=== PATIENT | female | born 1965 | race Caucasian/White ===

== ENCOUNTER 2018-06-18 17:03 | Emergency (ER) | payer OTHER ==
[2018-06-18 17:18] VITALS: BP 134/61; PULSE 90; TEMP 98; BMI 28.8
--- NOTE | 2018-06-18 17:19 | PDOC ---
Attending Attestation - Resident Resident Name: Vladimir Anderson - ED Attending Attestation I have performed the following: I have examined & evaluated the patient, The case was reviewed & discussed with the resident, I agree w/resident's findings & plan, Exceptions are as noted
[2018-06-18] MEDS ORDERED: PHENAZOPYRIDINE HCL 100 MG TABLET (FP) PO ONE (17:33)
--- NOTE | 2018-06-18 17:33 | PDOC ---
History of Present Illness - General Chief Complaint: Pain Stated Complaint: BLADDER SPASM AND PAIN AFTER VOIDING Time Seen by Provider: 06/18/18 17:18 - History of Present Illness Initial Comments: 06/18/18 18:25 Chief complaint: Crampy suprapubic pain with urinating History of present illness: Patient complains of crampy suprapubic pain when she urinates for several days. She is status post UTI treated with Cipro. She finished her antibiotic therapy 4 days ago and her dysuria has resolved. She has no dysuria frequency urgency hesitancy or hematuria . Review of systems: No fever/chills, back pain, nausea, vomiting, diarrhea, vaginal bleeding or discharge. Remainder systems reviewed negative Past medical, social, and family history as noted in old record Physical exam: Alert and oriented no acute distress cheerful and cooperative Afebrile, vital signs normal Abdomen nondistended. Bowel sounds normal. Soft without mass or organomegaly. There is mild tenderness over the bladder, with mild distention mid way to the umbilicus. No guarding or rebound. Urinalysis is clear. Culture is pending Impression: Bladder spasm post UTI. No sign of active infection Plan: Pyridium and urology referral. Past History - Past Medical History Allergies/Adverse Reactions: Allergies Allergy/AdvReac Type Severity Reaction Status Date / Time iodine Allergy Severe Difficulty Verified 06/18/18 17:12 Breathing shellfish derived Allergy Severe Difficulty Verified 06/18/18 17:12 Breathing Home Medications: Ambulatory Orders Divalproex [Depakote -] 500 mg PO BID 06/18/18 Gabapentin [Neurontin] 300 mg PO QID 06/18/18 Phenazopyridine HCl [Pyridium] 1 - 2 tab PO TID PRN #15 tablet 06/18/18 Quetiapine Fumarate [Seroquel] 150 mg PO HS 06/18/18 Asthma: Yes COPD: No Psychiatric Problems: Yes (ANXIETY) Other medical history: URINARY TRACT INFECTIONS - Immunization History Td Vaccination: Yes Immunization Up to Date: Yes - Suicide/Smoking/Psychosocial Hx Smoking Status: No Smoking History: Never smoked Years of Tobacco Use: 0 Have you smoked in the past 12 months: No Number of Cigarettes Smoked Daily: 0 If you are a former smoker, when did you quit?: 2000 Cigars Per Day: 0 Information on smoking cessation initiated: No Hx Alcohol Use: No Drug/Substance Use Hx: No Substance Use Type: None Abd/GI Specific PMHX - Complaint Specific PMHX GERD: Yes *Physical Exam - Vital Signs Last Vital Signs Temp Pulse Resp BP Pulse Ox 98 F 90 16 134/61 98 06/18/18 17:05 06/18/18 17:05 06/18/18 17:05 06/18/18 17:05 06/18/18 17:05 Moderate Sedation - Procedure Monitoring Vital Signs: Procedure Monitoring Vital Signs Temperature 98 F 06/18/18 17:05 Pulse Rate 90 06/18/18 17:05 Respiratory Rate 16 06/18/18 17:05 Blood Pressure 134/61 06/18/18 17:05 O2 Sat by Pulse Oximetry (%) 98 06/18/18 17:05 Medical Decision Making - Medical Decision Making 06/18/18 18:07 Urinalysis is clear. Culture pending Relief with Pyridium. Suspect bladder spasm post UTI. Discharged in no pain or other distress to follow-up with urologist and envelope machine operator as directed. *DC/Admit/Observation/Transfer Diagnosis at time of Disposition: Painful bladder spasm - Discharge Dispostion Disposition: HOME Condition at time of disposition: Stable Decision to Admit order: No - Prescriptions Prescriptions: Phenazopyridine HCl [Pyridium] 1 - 2 tab PO TID PRN #15 tablet PRN Reason: bladder spasm - Referrals - Patient Instructions Printed Discharge Instructions: DI for Overactive Bladder Additional Instructions: See your envelope machine operator and urologist as directed as soon as possible for further evaluation and treatment. - Post Discharge Activity
[2018-06-18] MEDS ORDERED: PHENAZOPYRIDINE HCL 100 MG TABLET (FP) ONE (17:42)
[2018-06-18 17:52] LABS: PH,URINE 6.5 (4.5-8); URINE APPEARANCE Clear; URINE BILIRUBIN Negative (NEGATIVE); URINE COLOR Yellow; URINE GLUCOSE (UA) Negative (NEGATIVE); URINE KETONE Trace (NEGATIVE); URINE LEUK ESTERASE Negative (NEGATIVE); URINE NITRITE Negative (NEGATIVE); URINE PROTEIN Negative (NEGATIVE); URINE UROBILINOGEN 0.2 (0.2-1.0)
== END 2018-06-18 18:36 | disposition home or self-care (01) ==
LOC: FER 17:03
DX: N32.89 Other specified disorders of bladder (principal); F41.9 Anxiety disorder, unspecified; J45.909 Unspecified asthma, uncomplicated; Z87.891 Personal history of nicotine dependence
CPT/HCPCS: 81003; 87086; 99283-25

== ENCOUNTER 2018-07-09 15:36 | Emergency (ER) | payer OTHER ==
--- NOTE | 2018-07-09 15:45 | PDOC ---
Rapid Medical Evaluation Time Seen by Provider: 07/09/18 15:42 Medical Evaluation: Allergies Allergy/AdvReac Type Severity Reaction Status Date / Time iodine Allergy Severe Difficulty Verified 06/18/18 17:12 Breathing shellfish derived Allergy Severe Difficulty Verified 06/18/18 17:12 Breathing 07/09/18 15:42 I have performed a brief in-person evaluation of this patient. The patient presents with a chief complaint of: Hx of known uterine fibroid which she believed burst today sudden onset of pain which started this morning at 10 am Pertinent physical exam findings:NAD I have ordered the following: CBC and Chemistry Transvaginal US Discharge Disposition - Diagnosis Pelvic pain - Referrals - Patient Instructions - Post Discharge Activity
[2018-07-09 15:47] VITALS: BP 146/96; PULSE 84; TEMP 97.9; BMI 26.6
--- NOTE | 2018-07-09 16:32 | PDOC ---
History of Present Illness - General Chief Complaint: Pain, Acute Stated Complaint: PAIN Time Seen by Provider: 07/09/18 15:42 History Source: Patient - History of Present Illness Timing/Duration: reports: intermittent Past History - Past Medical History Allergies/Adverse Reactions: Allergies Allergy/AdvReac Type Severity Reaction Status Date / Time iodine Allergy Severe Difficulty Verified 07/09/18 15:44 Breathing shellfish derived Allergy Severe Difficulty Verified 07/09/18 15:44 Breathing Home Medications: Ambulatory Orders Divalproex [Depakote -] 500 mg PO BID 06/18/18 Gabapentin [Neurontin] 300 mg PO QID 06/18/18 Phenazopyridine HCl [Pyridium] 1 - 2 tab PO TID PRN #15 tablet 06/18/18 Quetiapine Fumarate [Seroquel] 150 mg PO HS 06/18/18 Ibuprofen [Motrin -] 800 mg PO QID #28 tablet 07/09/18 Asthma: Yes COPD: No Psychiatric Problems: Yes (ANXIETY) - Immunization History Td Vaccination: Yes Immunization Up to Date: Yes - Suicide/Smoking/Psychosocial Hx Smoking Status: No Smoking History: Never smoked Years of Tobacco Use: 0 Have you smoked in the past 12 months: No Number of Cigarettes Smoked Daily: 0 If you are a former smoker, when did you quit?: 9 Cigars Per Day: 0 Hx Alcohol Use: No Drug/Substance Use Hx: No Substance Use Type: None Abd/GI Specific PMHX - Complaint Specific PMHX GERD: Yes Review of Systems - Review of Systems Constitutional: No: Chills, Fever, Unexplained wgt Loss ABD/GI: No: Constipated, Diarrhea, Nausea, Vomiting : No: Burning, Dysuria, Discharge, Flank Pain, Hematuria *Physical Exam - Vital Signs Last Vital Signs Temp Pulse Resp BP Pulse Ox 97.9 F 84 18 146/96 98 07/09/18 15:44 07/09/18 15:44 07/09/18 15:44 07/09/18 15:44 07/09/18 15:44 - Physical Exam Comments: 07/09/18 16:32 appears mildly anxious General Appearance: Yes: Appropriately Dressed HEENT: positive: Normal Voice Neck: positive: Supple Respiratory/Chest: negative: Respiratory Distress Gastrointestinal/Abdominal: positive: Normal Bowel Sounds, Soft. negative: Tender, Distended, Guarding, Rebound Musculoskeletal: negative: CVA Tenderness Integumentary: positive: Dry, Warm Neurologic: positive: Fully Oriented, Alert, Normal Mood/Affect Moderate Sedation - Procedure Monitoring Vital Signs: Procedure Monitoring Vital Signs Temperature 97.9 F 07/09/18 15:44 Pulse Rate 84 07/09/18 15:44 Respiratory Rate 18 07/09/18 15:44 Blood Pressure 146/96 07/09/18 15:44 O2 Sat by Pulse Oximetry (%) 98 07/09/18 15:44 ED Treatment Course - RADIOLOGY Radiology Studies Ordered: Category Date Time Status PELVIC / BLADDER US [US] Stat Ultrasound 07/09/18 16:21 Ordered Medical Decision Making - Medical Decision Making 07/09/18 16:22 52 yo F, s/p essure (non-surgical sterilization), fibroid uterus, gets monthly menses, here w/ ongoing pelvic pain that pt admits is chronic and has f/u US scheduled in am w/ Dr An, but here requesting US today because she is now concern that pain may be due to ?migration of her essure "because of horror stories I hear" per pt. No vag bleeding, dysuria, n/v/f/c See exam Fibroids w/ chronic pelvic pain Exam unremarkable Unlikely need US in the ER but requesting same to evaluate position of her essure devices Exam unremarkable -UA/US 07/09/18 18:44 07/09/18 18:55 Signed out to JARON Hager pending US report *DC/Admit/Observation/Transfer Diagnosis at time of Disposition: Chronic pelvic pain in female, Fibroids - Discharge Dispostion Disposition: HOME Condition at time of disposition: Good - Prescriptions Prescriptions: Ibuprofen [Motrin -] 800 mg PO QID #28 tablet - Referrals Referrals: Leeroy Capps MD [Primary Care Provider] - - Patient Instructions Printed Discharge Instructions: Uterine Fibroids Additional Instructions: Please follow up with your AVIATION SUPPORT EQUIPMENT REPAIRER tomorrow as already scheduled - Post Discharge Activity
[2018-07-09 17:41] LABS: URINE APPEARANCE CLOUDY; URINE BILIRUBIN NEGATIVE (<2.0 mg/dL); URINE COLOR YELLOW; URINE GLUCOSE (UA) NEGATIVE (NEGATIVE); URINE KETONE TRACE (NEGATIVE); URINE LEUK ESTERASE NEGATIVE (NEGATIVE); URINE NITRITE NEGATIVE (NEGATIVE); URINE PROTEIN NEGATIVE (NEGATIVE); URINE UROBILINOGEN 0.2 mg/dL (0.2-1.0)
[2018-07-09 17:44] LABS: HCG,QUALITATIVE URINE Negative
--- NOTE | 2018-07-09 19:24 | PDOC ---
*Physical Exam - Vital Signs Last Vital Signs Temp Pulse Resp BP Pulse Ox 97.9 F 84 18 146/96 98 07/09/18 15:44 07/09/18 15:44 07/09/18 15:44 07/09/18 15:44 07/09/18 15:44 ED Treatment Course - ADDITIONAL ORDERS Additional order review: Laboratory Results 07/09/18 17:00 Urine Color Yellow Urine Appearance Cloudy Urine pH 5.0 Ur Specific [place] 1.019 Urine Protein Negative Urine Glucose (UA) Negative Urine Ketones Trace H Urine Blood Negative Urine Nitrite Negative Urine Bilirubin Negative Urine Urobilinogen 0.2 Ur Leukocyte Esterase Negative Urine HCG, Qual Negative Progress Note - Progress Note Progress Note: Received sign out from SVEN Romero. Patient is a 52-year-old woman here for evaluation of a Essure device. Patient has appointment with Dr. Ivy tomorrow for reevaluation was concerned that she has continued pain. Patient has been ultrasound at this time. Medical Decision Making - Medical Decision Making 07/09/18 19:30 Ultrasound as read by Dr. Lange: As visualized on recent perform CT through 04/07, multiple uterine leiomyomas are noted most prominent measuring approximately 7 cm in diameter which is positioned along the right lateral aspect of the uterine body. No gross interval change since ultrasound exam performed 2013. Neither ovary can be definitely visualized due to distortion from the previously described leiomyomas. Better over to be definitively visualized on this exam. Bilateral fallopian tube occlusion device is identified on recent perform CT are difficult to appreciate on sonography. 07/09/18 19:34 I discussed the physical exam findings, ancillary test results and final diagnoses with the patient. I answered all of the patient's questions. The patient was satisfied with the care received and felt comfortable with the discharge plan and treatment plan. The patient will call their primary care physician within 24 hours to arrange follow-up and will return to the Emergency Department with any new, persistent or worsening symptoms. *DC/Admit/Observation/Transfer Diagnosis at time of Disposition: Chronic pelvic pain in female, Fibroids - Discharge Dispostion Condition at time of disposition: Good - Prescriptions Prescriptions: Ibuprofen [Motrin -] 800 mg PO QID #28 tablet - Referrals Referrals: Lereoy Capps MD [Primary Care Provider] - - Patient Instructions Printed Discharge Instructions: Uterine Fibroids Additional Instructions: Please follow up with your COLORER MACHINE tomorrow as already scheduled - Post Discharge Activity
== END 2018-07-09 19:36 | disposition home or self-care (01) ==
LOC: JER 15:36
DX: R10.2 Pelvic and perineal pain (principal); F41.9 Anxiety disorder, unspecified; J45.909 Unspecified asthma, uncomplicated
CPT/HCPCS: 76856-TC; 81003; 84703; 99281-25

== ENCOUNTER 2020-03-13 19:30 | Inpatient (IN) | payer OTHER ==
[2020-03-13] MEDS ORDERED: ROCURONIUM BROMIDE 100 MG/10 ML VIAL ONE (19:49)
[2020-03-13] MEDS ORDERED: RAPID SEQUENCE INTUBATION KIT NR ONE (19:57)
[2020-03-13] MEDS ORDERED: EPINEPHrine 1:10,000 (P-F SYR) 1 MG/10 ML DISP.SYRIN ONE (19:57)
[2020-03-13] MEDS ORDERED: SODIUM CHLORIDE 2,994 ML IV ONE (20:06)
[2020-03-13 20:23] LABS: HEMOGLOBIN 9.5 GM/dL (10.7-15.3); WHITE BLOOD COUNT 13.1 K/mm3 (4.0-10.0)
[2020-03-13 20:24] LABS: ARTERIAL BLD GAS O2 SATURATION 43.1 mmHg (95-98); ARTERIAL BLOOD GAS BASE EXCESS -24.2 mmol/L (-2-2)
[2020-03-13 20:27] LABS: ARTERIAL BLOOD GAS pH 6.878 (7.350-7.450)
[2020-03-13 20:31] LABS: INR 1.09 (0.83-1.09); PROTHROMBIN TIME (PATIENT) 13.2 SEC (9.7-13.0)
[2020-03-13 20:34] LABS: ACTIVATED PTT 33.1 SECONDS (25.2-36.5)
[2020-03-13] MEDS ORDERED: VANCOMYCIN HCL 1,500 MG in DEXTROSE 5%-WATER - 500 ML IVPB ONE (20:38)
[2020-03-13] MEDS ORDERED: AZITHROMYCIN IVPB 500 MG in DEXTROSE 5%-WATER - 250 ML IVPB ONE (20:39)
[2020-03-13] MEDS ORDERED: CEFEPIME HCL/D5W 2 GM/50 ML BAG IVPB ONE (20:39)
[2020-03-13 20:41] LABS: CHLORIDE 100 mmol/L (98-107); POTASSIUM 3.9 mmol/L (3.5-5.1); SODIUM 135 mmol/L (136-145)
[2020-03-13] MEDS ORDERED: PIPERACILLIN/TAZOB 3.375 GM 3.375 GM in DEXTROSE 5%-WATER - 50 ML IVPB ONE (20:41)
[2020-03-13] MEDS ORDERED: VANCOMYCIN HCL 2,000 MG in DEXTROSE 5%-WATER - 500 ML IVPB ONE (20:41)
[2020-03-13 20:43] LABS: CALCIUM 7.8 mg/dL (8.5-10.1)
[2020-03-13 20:44] LABS: ALBUMIN 2.6 g/dl (3.4-5.0); ANION GAP 24 MMOL/L (8-16); CO2 12 mmol/L (21-32); MAGNESIUM 3.2 mg/dL (1.8-2.4)
[2020-03-13 20:47] LABS: CREATININE 2.8 mg/dL (0.55-1.3); SGOT/AST 121 U/L (15-37); SGPT/ALT 48 U/L (13-61)
[2020-03-13 20:48] LABS: BILIRUBIN,TOTAL 0.2 mg/dL (0.2-1); TOT PROT 6.4 g/dl (6.4-8.2)
[2020-03-13 20:49] LABS: ALK PHOS 63 U/L (45-117)
[2020-03-13] MEDS ORDERED: AZITHROMYCIN IVPB 500 MG/250 ML BAG IVPB ONE (20:49)
[2020-03-13] MEDS ORDERED: PIPERACILLIN/TAZOB 3.375 GM 3.375 GM/50 ML BAG IVPB ONE (20:49)
[2020-03-13] MEDS ORDERED: PIPERACILLIN/TAZOB 4.5 GM 4.5 GM in DEXTROSE 5%-WATER 100 ML IVPB ONE (20:49)
[2020-03-13 20:52] LABS: N-TERMINAL BNP 2299.7 pg/ml (5-125)
[2020-03-13] MEDS ORDERED: PIPERACILLIN/TAZOB 4.5 GM 4.5 GM/100 ML BAG IVPB ONE (20:55)
[2020-03-13 20:56] LABS: BASO % 1.6 % (0-2.0); HEMATOCRIT 33.2 % (32.4-45.2); MCH 22.2 pg (25.7-33.7); MCHC 28.5 g/dl (32.0-36.0); MEAN CELL VOLUME 77.6 fl (80-96); MEAN PLT VOLUME 9.5 fl (7.5-11.1); MONO % 5.9 % (3.8-10.2); NEUT % 72.5 % (42.8-82.8); PLATELET COUNT 155 K/MM3 (134-434); RBC 4.28 M/mm3 (3.60-5.2); RDW 21.4 % (11.6-15.6)
[2020-03-13 21:01] LABS: GLUCOSE,RANDOM 477 mg/dL (74-106)
[2020-03-13] MEDS ORDERED: INSULIN REGULAR HUMAN 100 UNITS/ML *VIAL* (FOR IVP) IVPUSH ONE (21:10)
[2020-03-13 21:15] LABS: ARTERIAL BLD GAS O2 SATURATION 98.2 mmHg (95-98); ARTERIAL BLOOD GAS BASE EXCESS -20.8 mmol/L (-2-2)
[2020-03-13] MEDS ORDERED: INSULIN REGULAR 100 UNITS in SODIUM CHLORIDE 99 ML IVPB SCH (21:15)
[2020-03-13 21:18] LABS: VENT MODE VOL AC; VENT RATE 16
[2020-03-13] MEDS: LACTATED RINGERS SOLUTION 1,000 ML/1,000 ML INFUS.BAG IV SCH (21:55)
[2020-03-13 21:58] LABS: ANISOCYTOSIS 3+; MACROCYTOSIS 1+; OVALOCYTE 1+; PLATELET ESTIMATE NORMAL
[2020-03-13] MEDS ORDERED: VANCOMYCIN 1 GRAM (PRE-DOCKED) 2,000 MG/500 ML BAG IVPB ONE (21:58)
[2020-03-13 22:12] LABS: EPI CELLS >36 /uL (0-25.1); HYALINE CASTS 24 /uL (0-3.1); URINE APPEARANCE CLOUDY; URINE BACTERIA 63 /uL (0-1359); URINE BILIRUBIN NEGATIVE (NEGATIVE); URINE COLOR YELLOW; URINE GLUCOSE (UA) 3+ (NEGATIVE); URINE KETONE NEGATIVE (NEGATIVE); URINE LEUK ESTERASE NEGATIVE (NEGATIVE); URINE NITRITE NEGATIVE (NEGATIVE); URINE PROTEIN 2+ (NEGATIVE); URINE RBC 12 /uL (0-23.9); URINE UROBILINOGEN 0.2 mg/dL (0.2-1.0)
[2020-03-13 22:33] LABS: PHOSPHOROUS 8.5 mg/dL (2.5-4.9)
[2020-03-13] MEDS ORDERED: INSULIN REGULAR HUMAN 100 UNITS/ML *VIAL ONE (22:34)
[2020-03-13] MEDS ORDERED: PROPOFOL 200 MG/20 ML VIAL IVPUSH ONE (22:50)
[2020-03-13 22:52] LABS: URINE WBC 153.2 /uL (0-25.8)
[2020-03-13] MEDS ORDERED: TRIPLE LUMEN FLUSH 4 ML ML IVPUSH PRN (23:28)
[2020-03-13] MEDS ORDERED: IBUPROFEN 600 MG TABLET (FP) PO ONE (23:37)
[2020-03-14] MEDS: DEXMEDETOMIDINE HCL IVPB SCH ×2 (00:05→21:46)
[2020-03-14] MEDS: SODIUM CHLORIDE IVPB SCH ×2 (00:05→21:46)
[2020-03-14] MEDS ORDERED: PROPOFOL 1,000,000 MCG/100 ML VIAL ONE (00:07)
[2020-03-14 00:14] LABS: ARTERIAL BLD GAS O2 SATURATION 92.5 mmHg (95-98); ARTERIAL BLOOD GAS BASE EXCESS -12.8 mmol/L (-2-2); ARTERIAL BLOOD GAS PO2 75.8 mmHg (80-100); ARTERIAL BLOOD GAS pH 7.211 (7.350-7.450)
[2020-03-14] MEDS ORDERED: PROPOFOL 1,000,000 MCG/100 ML VIAL IVPB SCH (00:15)
[2020-03-14 00:17] LABS: ALLENS TEST POSITIVE
[2020-03-14 00:18] LABS: VENT MODE A/C; VENT RATE 16
[2020-03-14 00:30] LABS: URINE BARBITURATES NEGATIVE ng/ml (CUTOFF=200); URINE BENZODIAZEPINES NEGATIVE ng/ml (CUTOFF=200)
[2020-03-14 00:31] LABS: METHADONE, UR NEGATIVE ng/ml (CUTOFF=300); OPIATES, URI NEGATIVE ng/ml (CUTOFF=300); PHENCYCLIDINE,URINE NEGATIVE ng/ml (CUTOFF=25)
[2020-03-14 00:33] LABS: COCAINE, UR NEGATIVE ng/ml (CUTOFF=300); URINE AMPHETAMINES NEGATIVE ng/ml (CUTOFF=500)
[2020-03-14 00:43] LABS: POTASSIUM 4.2 mmol/L (3.5-5.1)
[2020-03-14 00:44] LABS: CALCIUM 7.6 mg/dL (8.5-10.1)
[2020-03-14 00:45] LABS: BLOOD UREA NITROGEN 33.6 mg/dL (7-18)
[2020-03-14 00:48] LABS: CREATININE 2.5 mg/dL (0.55-1.3)
[2020-03-14] MEDS ORDERED: PANTOPRAZOLE SODIUM 40 MG VIAL IVPUSH ONE (01:33)
[2020-03-14] MEDS: NOREPINEPHRINE BITARTRATE 8,000 MCG/500 ML BAG IVPB SCH (02:23)
[2020-03-14] MEDS ORDERED: FENTANYL NS IVPB 500 MCG/100 ML BAG IVPB SCH (03:00)
[2020-03-14] MEDS ORDERED: DEXTROSE 50%-WATER - 25 GM/50 ML VIAL IVPUSH PRN (03:17)
[2020-03-14] MEDS ORDERED: INSULIN REGULAR 100 UNITS in SODIUM CHLORIDE 99 ML IVPB SCH (03:30)
[2020-03-14] MEDS: FENTANYL NS IVPB 500 MCG/100 ML BAG IVPB SCH (04:00)
[2020-03-14] MEDS: LACTATED RINGERS SOLUTION 1,000 ML/1,000 ML INFUS.BAG IV SCH ×2 (04:21→21:42)
[2020-03-14 05:14] LABS: POTASSIUM 4.3 mmol/L (3.5-5.1)
[2020-03-14 05:15] LABS: BLOOD UREA NITROGEN 38.6 mg/dL (7-18); CALCIUM 7.7 mg/dL (8.5-10.1)
[2020-03-14 05:19] LABS: CREATININE 2.3 mg/dL (0.55-1.3)
[2020-03-14 06:46] LABS: BASO % 0.2 % (0-2.0); HEMATOCRIT 29.4 % (32.4-45.2); HEMOGLOBIN 8.9 GM/dL (10.7-15.3); LYMPH % 12.2 % (8-40); MCH 21.6 pg (25.7-33.7); MCHC 30.4 g/dl (32.0-36.0); MEAN CELL VOLUME 70.9 fl (80-96); MEAN PLT VOLUME 8.7 fl (7.5-11.1); MONO % 7.4 % (3.8-10.2); NEUT % 80.2 % (42.8-82.8); PLATELET COUNT 163 K/MM3 (134-434); RBC 4.15 M/mm3 (3.60-5.2); RDW 20.2 % (11.6-15.6); WHITE BLOOD COUNT 12.4 K/mm3 (4.0-10.0)
[2020-03-14 07:06] LABS: MAGNESIUM 2.6 mg/dL (1.8-2.4)
[2020-03-14 07:09] LABS: PHOSPHOROUS 2.4 mg/dL (2.5-4.9)
[2020-03-14] MEDS ORDERED: PIPERACILLIN/TAZOB 3.375 GM 3.375 GM in DEXTROSE 5%-WATER - 50 ML IVPB ONE (08:45)
[2020-03-14 08:55] LABS: ANISOCYTOSIS 2+; MACROCYTOSIS 0; PLATELET ESTIMATE DECREASED
[2020-03-14] MEDS ORDERED: PIPERACILLIN/TAZOB 3.375 GM 3.375 GM in DEXTROSE 5%-WATER - 50 ML IVPB SCH (09:00)
[2020-03-14] MEDS ORDERED: PIPERACILLIN/TAZOBACTAM 3.375 GM VIAL IVPB ONE (09:59)
[2020-03-14] MEDS ORDERED: DEXTROSE 5%-WATER - 50 ML IVPB ONE ×3 (10:00→21:18)
[2020-03-14] MEDS: MUPIROCIN 2% TOPICAL OINTMENT FOR DECOLONIZATION NS SCH ×2 (10:01→21:45)
[2020-03-14] MEDS: PROPOFOL 1,000,000 MCG/100 ML VIAL IVPUSH SCH ×2 (10:45→19:30)
[2020-03-14 11:47] LABS: ALLENS TEST POSITIVE; ARTERIAL BLD GAS O2 SATURATION 76.6 mmHg (95-98); ARTERIAL BLOOD GAS BASE EXCESS -4.1 mmol/L (-2-2); ARTERIAL BLOOD GAS PO2 42.3 mmHg (80-100); ARTERIAL BLOOD GAS pH 7.364 (7.350-7.450)
[2020-03-14 11:48] LABS: VENT MODE AC; VENT RATE 16
[2020-03-14] MEDS ORDERED: ACETAMINOPHEN 1000 MG/100 ML VIAL (NON FORMULARY) IVPB ONE (12:14)
[2020-03-14] MEDS: HEPARIN NA (PORCINE) 5,000 UNITS/ML 1ML VIAL SQ SCH ×2 (14:37→21:45)
[2020-03-14] MEDS ORDERED: PIPERACILLIN/TAZOBACTAM 2.25 GM VIAL IVPB ONE ×2 (15:15→21:18)
[2020-03-14] MEDS: PIPERACILLIN/TAZOB 2.25 GM 2.25 GM in DEXTROSE 5%-WATER - 50 ML IVPB SCH ×2 (15:30→21:42)
[2020-03-14] MEDS: INSULIN SLIDING SCALE (NOVOLOG) 1 VIAL SQ SCH ×2 (17:22→21:45)
[2020-03-14] MEDS: ACETAMINOPHEN 1000 MG/100 ML VIAL (NON FORMULARY) IVPB PRN (20:00)
[2020-03-14 20:55] LABS: POTASSIUM 4.4 mmol/L (3.5-5.1)
[2020-03-14 20:56] LABS: CALCIUM 7.7 mg/dL (8.5-10.1)
[2020-03-14 20:57] LABS: BLOOD UREA NITROGEN 35.1 mg/dL (7-18)
[2020-03-14 21:00] LABS: CREATININE 1.9 mg/dL (0.55-1.3)
[2020-03-14] MEDS: CHLORHEXIDINE GLUCONATE 4% CLEANSER FOR DECOLONIZATION TP SCH (21:45)
[2020-03-14] MEDS: DOXYCYCLINE INJECTION 100 MG in DEXTROSE 5%-WATER - 100 ML IVPB SCH (21:46)
[2020-03-15] MEDS ORDERED: PIPERACILLIN/TAZOBACTAM 2.25 GM VIAL IVPB ONE ×2 (03:58→09:23)
[2020-03-15] MEDS ORDERED: DEXTROSE 5%-WATER - 50 ML IVPB ONE ×2 (03:58→09:24)
[2020-03-15] MEDS: ACETAMINOPHEN 1000 MG/100 ML VIAL (NON FORMULARY) IVPB PRN ×3 (04:00→21:19)
[2020-03-15] MEDS: PIPERACILLIN/TAZOB 2.25 GM 2.25 GM in DEXTROSE 5%-WATER - 50 ML IVPB SCH ×2 (04:17→09:00)
[2020-03-15] MEDS: FENTANYL NS IVPB 500 MCG/100 ML BAG IVPB SCH ×5 (04:18→17:46)
[2020-03-15] MEDS: NOREPINEPHRINE BITARTRATE 8,000 MCG/500 ML BAG IVPB SCH (04:18)
[2020-03-15 04:55] LABS: ARTERIAL BLD GAS O2 SATURATION 63.7 mmHg (95-98); ARTERIAL BLOOD GAS BASE EXCESS -3.2 mmol/L (-2-2)
[2020-03-15 04:57] LABS: VENT MODE A/C; VENT RATE 16
[2020-03-15 04:58] LABS: ARTERIAL BLOOD GAS PO2 34.7 mmHg (80-100)
[2020-03-15] MEDS: HEPARIN NA (PORCINE) 5,000 UNITS/ML 1ML VIAL SQ SCH (06:13)
[2020-03-15] MEDS: INSULIN SLIDING SCALE (NOVOLOG) 1 VIAL SQ SCH ×4 (06:14→22:42)
[2020-03-15] MEDS: PROPOFOL 1,000,000 MCG/100 ML VIAL IVPUSH SCH ×5 (06:15→17:46)
[2020-03-15 06:52] LABS: BASO % 0.5 % (0-2.0); EOS % 0.1 % (0-4.5); HEMOGLOBIN 8.6 GM/dL (10.7-15.3); LYMPH % 10.9 % (8-40); MCH 22.7 pg (25.7-33.7); MCHC 31.9 g/dl (32.0-36.0); MEAN CELL VOLUME 71.1 fl (80-96); MEAN PLT VOLUME 8.4 fl (7.5-11.1); MONO % 3.3 % (3.8-10.2); NEUT % 85.2 % (42.8-82.8); PLATELET COUNT 190 K/MM3 (134-434); WHITE BLOOD COUNT 8.5 K/mm3 (4.0-10.0)
[2020-03-15 07:26] LABS: POTASSIUM 4.4 mmol/L (3.5-5.1)
[2020-03-15 07:30] LABS: ALBUMIN 2.1 g/dl (3.4-5.0); BLOOD UREA NITROGEN 33.1 mg/dL (7-18); MAGNESIUM 2.2 mg/dL (1.8-2.4)
[2020-03-15 07:33] LABS: CREATININE 1.8 mg/dL (0.55-1.3); PHOSPHOROUS 2.7 mg/dL (2.5-4.9)
[2020-03-15 07:34] LABS: BILIRUBIN,TOTAL 0.6 mg/dL (0.2-1)
[2020-03-15 07:35] LABS: TOT PROT 5.3 g/dl (6.4-8.2)
[2020-03-15 08:34] LABS: CALCIUM 6.9 mg/dL (8.5-10.1)
[2020-03-15] MEDS: DOXYCYCLINE INJECTION 100 MG in DEXTROSE 5%-WATER - 100 ML IVPB SCH ×2 (10:00→22:45)
[2020-03-15] MEDS: MUPIROCIN 2% TOPICAL OINTMENT FOR DECOLONIZATION NS SCH ×2 (10:00→21:19)
[2020-03-15] MEDS ORDERED: VECURONIUM BROMIDE 50 MG/50 ML VIAL IVPUSH ONE ×2 (10:03→10:45)
[2020-03-15] MEDS ORDERED: SODIUM CHLORIDE 250 ML IV PRN (10:14)
[2020-03-15] MEDS: PIPERACILLIN/TAZOB 4.5 GM 4.5 GM in DEXTROSE 5%-WATER 100 ML IVPB SCH ×2 (10:15→17:44)
[2020-03-15 10:53] LABS: ANISOCYTOSIS 1+; MACROCYTOSIS 0; OVALOCYTE 1+; PLATELET ESTIMATE NORMAL; TEAR DROP CELLS 1+
[2020-03-15] MEDS: LACTATED RINGERS SOLUTION 1,000 ML/1,000 ML INFUS.BAG IV SCH (11:13)
[2020-03-15] MEDS ORDERED: REMDESIVIR 200 MG in SODIUM CHLORIDE 210 ML IVPB ONE ×2 (11:34→12:00)
[2020-03-15] MEDS ORDERED: REMDESIVIR 200 MG in SODIUM CHLORIDE 250 ML IVPB ONE (12:00)
[2020-03-15] MEDS: APIXABAN 5 MG TABLET PO SCH ×2 (12:03→22:42)
[2020-03-15] MEDS: SODIUM CHLORIDE IVPB SCH (12:23)
[2020-03-15] MEDS: DEXMEDETOMIDINE HCL IVPB SCH (12:23)
[2020-03-15] MEDS: DEXAMETHASONE SOD PHOSPHATE 4 MG/1 ML VIAL IVPUSH SCH ×2 (14:35→21:19)
[2020-03-15 16:34] VITALS: BMI 34.9
[2020-03-15] MEDS ORDERED: PIPERACILLIN/TAZOBACTAM 4.5 GM VIAL IVPB ONE ×2 (17:27→23:32)
[2020-03-15] MEDS ORDERED: DEXTROSE 5%-WATER 100 ML IVPB ONE ×2 (17:28→23:32)
[2020-03-15] MEDS: CHLORHEXIDINE GLUCONATE 4% CLEANSER FOR DECOLONIZATION TP SCH (21:19)
[2020-03-16] MEDS: PIPERACILLIN/TAZOB 4.5 GM 4.5 GM in DEXTROSE 5%-WATER 100 ML IVPB SCH ×3 (01:30→18:41)
[2020-03-16] MEDS: DEXAMETHASONE SOD PHOSPHATE 4 MG/1 ML VIAL IVPUSH SCH ×4 (03:45→20:17)
[2020-03-16] MEDS: INSULIN SLIDING SCALE (NOVOLOG) 1 VIAL SQ SCH ×3 (06:30→18:55)
[2020-03-16 07:04] LABS: HEMATOCRIT 26.5 % (32.4-45.2); HEMOGLOBIN 8.5 GM/dL (10.7-15.3); MCHC 32.2 g/dl (32.0-36.0); MEAN CELL VOLUME 71.6 fl (80-96); MEAN PLT VOLUME 8.6 fl (7.5-11.1); PLATELET COUNT 239 K/MM3 (134-434); RDW 20.2 % (11.6-15.6)
[2020-03-16] MEDS: NOREPINEPHRINE BITARTRATE 8,000 MCG/500 ML BAG IVPB SCH (07:15)
[2020-03-16 07:38] LABS: CALCIUM 7.1 mg/dL (8.5-10.1)
[2020-03-16 07:39] LABS: ALBUMIN 2.1 g/dl (3.4-5.0); BLOOD UREA NITROGEN 25.6 mg/dL (7-18); MAGNESIUM 2.5 mg/dL (1.8-2.4)
[2020-03-16 07:42] LABS: CREATININE 1.4 mg/dL (0.55-1.3); PHOSPHOROUS 2.4 mg/dL (2.5-4.9)
[2020-03-16 07:43] LABS: BILIRUBIN,TOTAL 0.7 mg/dL (0.2-1); TOT PROT 5.6 g/dl (6.4-8.2)
[2020-03-16] MEDS ORDERED: NAPH,MB-DB/K PH,MBDB POWDER PACKET PO ONE (08:41)
[2020-03-16] MEDS ORDERED: DEXTROSE 5%-WATER 100 ML IVPB ONE ×2 (08:51→15:29)
[2020-03-16] MEDS ORDERED: PIPERACILLIN/TAZOBACTAM 4.5 GM VIAL IVPB ONE ×2 (08:51→15:29)
[2020-03-16] MEDS: DOXYCYCLINE INJECTION 100 MG in DEXTROSE 5%-WATER - 100 ML IVPB SCH (09:46)
[2020-03-16] MEDS: FENTANYL NS IVPB 500 MCG/100 ML BAG IVPB SCH ×4 (09:48→19:07)
[2020-03-16] MEDS: PROPOFOL 1,000,000 MCG/100 ML VIAL IVPUSH SCH ×2 (09:50→14:07)
[2020-03-16] MEDS ORDERED: VECURONIUM BROMIDE 10 MG/10 ML VIAL IVPUSH ONE (09:51)
[2020-03-16] MEDS ORDERED: MIDAZOLAM IN 0.9 % SOD.CHLORID 1 MG/1 ML PLAST..BAG ONE (09:54)
[2020-03-16] MEDS ORDERED: MIDAZOLAM IN 0.9 % SOD.CHLORID 100 MG/100 ML PLAST..BAG IVPB SCH (10:00)
[2020-03-16] MEDS ORDERED: MIDAZOLAM 100 MG in SODIUM CHLORIDE 100 ML IVPB SCH (10:00)
[2020-03-16] MEDS: MUPIROCIN 2% TOPICAL OINTMENT FOR DECOLONIZATION NS SCH (10:01)
[2020-03-16] MEDS: APIXABAN 5 MG TABLET PO SCH (10:02)
[2020-03-16] MEDS ORDERED: PARICALCITOL 5 MCG/ML VIAL IVPUSH ONE (10:14)
[2020-03-16 10:47] LABS: ARTERIAL BLD GAS O2 SATURATION 85.8 mmHg (95-98); ARTERIAL BLOOD GAS BASE EXCESS -1.8 mmol/L (-2-2); ARTERIAL BLOOD GAS PO2 51.4 mmHg (80-100); ARTERIAL BLOOD GAS pH 7.379 (7.350-7.450)
[2020-03-16 10:51] LABS: ALLENS TEST POSITIVE
[2020-03-16 10:52] LABS: VENT MODE A/C; VENT RATE 24
[2020-03-16] MEDS ORDERED: REMDESIVIR 100 MG in SODIUM CHLORIDE 230 ML IVPB SCH ×2 (11:34→12:00)
[2020-03-16] MEDS ORDERED: FAMOTIDINE 20 MG/50 ML IVPB 20 MG/50 ML MG IVPB SCH (12:00)
[2020-03-16] MEDS ORDERED: SODIUM PHOSPHATE - 15 MM in DEXTROSE 5%-WATER - 250 ML IVPB ONE (12:00)
[2020-03-16] MEDS: ACETAMINOPHEN 1000 MG/100 ML VIAL (NON FORMULARY) IVPB PRN ×2 (13:08→20:16)
[2020-03-16] MEDS ORDERED: VECURONIUM BROMIDE 100 MG/100 ML BAG IVPB SCH (14:45)
[2020-03-16] MEDS: LACTATED RINGERS SOLUTION 1,000 ML/1,000 ML INFUS.BAG IV SCH ×2 (15:16→18:42)
[2020-03-16] MEDS ORDERED: PT OWN MED DRAWER 7, Y5N ONE (15:31)
[2020-03-16 16:11] LABS: METHANOL, BLOOD <.010 g/dL (0.000-0.010)
[2020-03-17 00:30] VITALS: BP 118/65; PULSE 88; TEMP 88
== END 2020-03-16 22:00 | disposition short-term general hospital (02) | DRG 710 ==
LOC: JER 19:30 → JERBED 22:36 → JICU 03-14 02:39
PROVIDERS: ADMIT Internal Medicine; ATTEND Internal Medicine
PROC: 5A1945Z Respiratory Ventilation, 24-96 Consecutive Hours (ICD-10-PCS; principal; 2020-03-13)
PROC: 0BH17EZ Insertion of Endotracheal Airway into Trachea, Via Natural or Artificial Opening (ICD-10-PCS; 2020-03-13)
PROC: 0DH67UZ Insertion of Feeding Device into Stomach, Via Natural or Artificial Opening (ICD-10-PCS; 2020-03-13)
PROC: 02HV33Z Insertion of Infusion Device into Superior Vena Cava, Percutaneous Approach (ICD-10-PCS; 2020-03-13)
PROC: B548ZZA Ultrasonography of Superior Vena Cava, Guidance (ICD-10-PCS; 2020-03-13)
PROC: 8E0ZXY6 Isolation (ICD-10-PCS; 2020-03-13)
PROC: 5A12012 Performance of Cardiac Output, Single, Manual (ICD-10-PCS; 2020-03-13)
PROC: XW043E5 Introduction of Remdesivir Anti-infective into Central Vein, Percutaneous Approach, New Technology Group 5 (ICD-10-PCS; 2020-03-15)
PROC: XW14325 Transfusion of Convalescent Plasma (Nonautologous) into Central Vein, Percutaneous Approach, New Technology Group 5 (ICD-10-PCS; 2020-03-15)
DX: A41.89 Other specified sepsis (principal); J96.01 Acute respiratory failure with hypoxia; I46.9 Cardiac arrest, cause unspecified; U07.1 COVID-19; R65.21 Severe sepsis with septic shock; J12.89 Other viral pneumonia; N17.9 Acute kidney failure, unspecified; E11.10 Type 2 diabetes mellitus with ketoacidosis without coma; E87.1 Hypo-osmolality and hyponatremia; M84.464A Pathological fracture, left fibula, initial encounter for fracture; I24.8 Other forms of acute ischemic heart disease; E87.2 Acidosis; D64.9 Anemia, unspecified; F41.9 Anxiety disorder, unspecified; F32.9 Major depressive disorder, single episode, unspecified; J45.909 Unspecified asthma, uncomplicated; K76.0 Fatty (change of) liver, not elsewhere classified; J98.11 Atelectasis; D25.9 Leiomyoma of uterus, unspecified
CPT/HCPCS: 36415; 36430; 36600; 70450-TC; 71045-TC-FY; 71275-TC; 72125-TC; 73590-TC-LT-FY; 73610-TC-LT-FY; 73630-TC-LT; 74177-TC; 80048; 80053; 80307; 81003; 82010; 82550; 82553; 82565; 82693; 82728; 82803; 82962; 83605; 83615; 83735; 83880; 84100; 84300; 84439; 84443; 84484; 84703; 85025; 85027; 85379; 85610; 85730; 86140; 86769; 86850; 86900; 86901; 87040; 87070; 87077; 87086; 87205; 87804; 87899; 93005; 93010; 93306-TC; 94002; 99291; 99292; C9803; G0480; J0131; J1644; P9017; Q9967; U0003